=== PATIENT | male | born 1955 | race Caucasian/White ===

== ENCOUNTER 2019-01-01 20:08 | Inpatient (IN) | payer OTHER ==
[2019-01-01 20:29] LABS: ADD MAN DIFF? NO
[2019-01-01 20:31] LABS: BASOPHILS % 0.3 % (0.0-2.0); EOSINOPHILS # 0.1 10^3/ul (0.0-0.5); EOSINOPHILS % 0.5 % (0.0-7.0); HEMATOCRIT 42.6 % (42.0-52.0); LYMPHOCYTES # 2.3 10^3/ul (0.8-2.9); LYMPHOCYTES % 15.8 % (15.0-51.0); MEAN CORPUSCULAR HEMOGLOBIN 30.8 pg (29.0-33.0); MEAN CORPUSCULAR HGB CONC 32.9 g/dl (32.0-37.0); MEAN CORPUSCULAR VOLUME 93.6 fl (82.0-101.0); MEAN PLATELET VOLUME 9.4 fl (7.4-10.4); MONOCYTE # 1.3 10^3/ul (0.3-0.9); MONOCYTES % 8.6 % (0.0-11.0); NEUTROPHIL # 10.9 10^3/ul (1.6-7.5); NEUTROPHILS % 74.3 % (39.0-77.0); PLATELET COUNT 280 10^3/UL (140-415); RED BLOOD COUNT 4.55 10^6/ul (4.70-6.10); RED CELL DISTRIBUTION WIDTH 13.5 % (11.5-14.5)
[2019-01-01 20:31] LABS: WHITE BLOOD COUNT 14.7 10^3/ul (4.8-10.8)
[2019-01-01 20:50] LABS: INR 1.04; PROTIME 13.7 Sec (11.9-14.9); PT RATIO 1.1
[2019-01-01 20:55] LABS: ALANINE AMINOTRANSFERASE 42 IU/L (13-69); ALBUMIN 4.1 g/dl (3.3-4.9); ALBUMIN/GLOBULIN RATIO 1.36; ALKALINE PHOSPHATASE 52 IU/L (42-121); ANION GAP 6 (5-13); ASPARTATE AMINO TRANSFERASE 81 IU/L (15-46); BILIRUBIN,INDIRECT 0.4 mg/dl (0-1.1); BILIRUBIN,TOTAL 0.4 mg/dl (0.2-1.3); BLOOD UREA NITROGEN 23 mg/dl (7-20); CALCIUM 9.4 mg/dl (8.4-10.2); CARBON DIOXIDE 29 mmol/L (21-31); CHLORIDE 104 mmol/L (97-110); CREATININE 1.45 mg/dl (0.61-1.24); Estimated GFR 49 mL/min (>60); GLUCOSE 100 mg/dl (70-220); POTASSIUM 4.2 mmol/L (3.5-5.1); SODIUM 139 mmol/L (135-144); TOTAL PROTEIN 7.1 g/dl (6.1-8.1)
[2019-01-01 21:05] LABS: B-TYPE NATRIURETIC PEPTIDE 892 PG/ML (0-125)
[2019-01-01] MEDS ORDERED: ASPIRIN 325 MG TAB PO (21:07)
[2019-01-01] MEDS: ATORVASTATIN 80 MG TAB PO (21:24)
[2019-01-01] MEDS: HEPARIN 1000 UNITS/ML 10 ML INJ IV (21:26)
[2019-01-01] MEDS: HEPARIN 25000 UNITS/250 ML 250 ML IV (21:28)
[2019-01-01] MEDS: ASPIRIN 81 MG TAB PO (21:29)
[2019-01-01] MEDS ORDERED: LORAZEPAM 0.5 MG TAB PO (23:00)
[2019-01-01] MEDS ORDERED: ZOLPIDEM 5 MG TAB PO (23:00)
[2019-01-01] MEDS ORDERED: ACETAMINOPHEN 325 MG TAB PO (23:00)
[2019-01-01] MEDS ORDERED: morphine 2 MG INJ IV (23:00)
[2019-01-01] MEDS ORDERED: ONDANSETRON 4 MG TAB PO (23:00)
[2019-01-01] MEDS ORDERED: DOCUSATE SODIUM 100 MG CAP PO (23:00)
[2019-01-01] MEDS ORDERED: NACL 0.9% 3 ML SYG IV (23:00)
[2019-01-02 00:43] LABS: CREATINE KINASE 681 IU/L (23-200)
[2019-01-02] MEDS: FAMOTIDINE 20 MG TAB PO (00:57)
[2019-01-02] MEDS: METOPROLOL 25 MG TAB PO ×3 (00:57→21:00)
[2019-01-02] MEDS: HEPARIN 25000 UNITS/250 ML 250 ML IV (00:58)
[2019-01-02] MEDS ORDERED: HEPARIN 1000 UNITS/ML 10 ML INJ IV (01:00)
[2019-01-02 01:10] LABS: D-DIMER 418.56 ng/ml (<460)
[2019-01-02] MEDS: DEXTROSE 5%-0.45% NACL 1,000 ML IV (01:31)
[2019-01-02 02:20] LABS: ERYTHROCYTE SEDIMENTATION RATE 28 mm/Hr (0-20)
[2019-01-02 03:50] LABS: ADD MAN DIFF? NO
[2019-01-02 04:06] LABS: WHITE BLOOD COUNT 13.1 10^3/ul (4.8-10.8)
[2019-01-02 04:06] LABS: BASOPHILS % 0.2 % (0.0-2.0); EOSINOPHILS # 0.1 10^3/ul (0.0-0.5); EOSINOPHILS % 0.9 % (0.0-7.0); HEMATOCRIT 41.6 % (42.0-52.0); HEMOGLOBIN 13.8 g/dl (14.0-18.0); LYMPHOCYTES # 2.7 10^3/ul (0.8-2.9); LYMPHOCYTES % 20.5 % (15.0-51.0); MEAN CORPUSCULAR HEMOGLOBIN 30.7 pg (29.0-33.0); MEAN CORPUSCULAR HGB CONC 33.2 g/dl (32.0-37.0); MEAN CORPUSCULAR VOLUME 92.7 fl (82.0-101.0); MEAN PLATELET VOLUME 9.8 fl (7.4-10.4); MONOCYTE # 1.4 10^3/ul (0.3-0.9); MONOCYTES % 10.4 % (0.0-11.0); NEUTROPHIL # 8.8 10^3/ul (1.6-7.5); NEUTROPHILS % 67.5 % (39.0-77.0); PLATELET COUNT 262 10^3/UL (140-415); RED BLOOD COUNT 4.49 10^6/ul (4.70-6.10); RED CELL DISTRIBUTION WIDTH 13.6 % (11.5-14.5)
[2019-01-02 04:08] LABS: HEMOGLOBIN A1C 5.8 % (0-5.9)
[2019-01-02 04:12] LABS: PARTIAL THROMBOPLASTIN TIME 30.1 Sec (23.0-35.0)
[2019-01-02 04:15] LABS: CREATINE KINASE 650 IU/L (23-200)
[2019-01-02 04:17] LABS: ANION GAP 7 (5-13); BLOOD UREA NITROGEN 19 mg/dl (7-20); CALCIUM 8.8 mg/dl (8.4-10.2); CARBON DIOXIDE 26 mmol/L (21-31); CHLORIDE 108 mmol/L (97-110); CREATININE 1.18 mg/dl (0.61-1.24); Estimated GFR > 60 mL/min (>60); GLUCOSE 130 mg/dl (70-220); MAGNESIUM 2.2 mg/dl (1.7-2.5); SODIUM 141 mmol/L (135-144)
[2019-01-02 04:28] LABS: CK INDEX 4.1
[2019-01-02] MEDS: HEPARIN 1000 UNITS/ML 10 ML INJ IV (04:37)
[2019-01-02 05:39] LABS: THYROID STIMULATING HORMONE 0.541 MIU/L (0.465-4.680)
[2019-01-02] MEDS ORDERED: LIDOCAINE 1% (MDV) 20 ML INJ (08:51)
[2019-01-02] MEDS ORDERED: HEPARIN 1000 UNITS/ML 10 ML INJ (08:51)
[2019-01-02] MEDS ORDERED: VERAPAMIL 5 MG INJ (08:52)
[2019-01-02] MEDS ORDERED: FENTAnyl 50 MCG/ML VIAL ×2 (08:52→11:01)
[2019-01-02] MEDS ORDERED: NITROGLYCERIN (IC) 100 MCG/ML INJ (08:52)
[2019-01-02] MEDS ORDERED: MIDAZOLAM 1 MG/ML 2 ML INJ ×2 (08:52→11:01)
[2019-01-02] MEDS ORDERED: ASPIRIN (EC) 325 MG TAB PO (09:00)
[2019-01-02] MEDS ORDERED: IOHEXOL 350MG/ML 50 ML BTL (10:00)
[2019-01-02] MEDS ORDERED: IODIXANOL LOCM 100 ML BTL ×3 (10:00→10:53)
[2019-01-02] MEDS ORDERED: TICAGRELOR 90 MG TABLET (11:17)
[2019-01-02] MEDS: SOD CHLORIDE 0.9% 1,000 ML IV (12:19)
[2019-01-02] MEDS: NICOTINE (21 MG/24 HR) PATCH TRANSDERM (12:47)
[2019-01-02 13:26] LABS: PARTIAL THROMBOPLASTIN TIME 156.1 Sec (23.0-35.0)
[2019-01-02] MEDS: ARIPIPRAZOLE 5 MG TAB PO (21:24)
[2019-01-02] MEDS: ATORVASTATIN 80 MG TAB PO (21:24)
[2019-01-02] MEDS: TICAGRELOR 90 MG TABLET PO (21:27)
[2019-01-03 05:46] LABS: ADD MAN DIFF? NO
[2019-01-03 06:08] LABS: BASOPHILS % 0.2 % (0.0-2.0); EOSINOPHILS # 0.1 10^3/ul (0.0-0.5); EOSINOPHILS % 0.8 % (0.0-7.0); HEMATOCRIT 40.7 % (42.0-52.0); HEMOGLOBIN 13.8 g/dl (14.0-18.0); LYMPHOCYTES % 15.5 % (15.0-51.0); MEAN CORPUSCULAR HGB CONC 33.9 g/dl (32.0-37.0); MEAN CORPUSCULAR VOLUME 91.5 fl (82.0-101.0); MEAN PLATELET VOLUME 10.1 fl (7.4-10.4); MONOCYTE # 0.9 10^3/ul (0.3-0.9); MONOCYTES % 6.9 % (0.0-11.0); NEUTROPHIL # 9.9 10^3/ul (1.6-7.5); PLATELET COUNT 261 10^3/UL (140-415); RED BLOOD COUNT 4.45 10^6/ul (4.70-6.10); RED CELL DISTRIBUTION WIDTH 13.4 % (11.5-14.5)
[2019-01-03 07:05] LABS: ANION GAP 7 (5-13); BLOOD UREA NITROGEN 13 mg/dl (7-20); CARBON DIOXIDE 26 mmol/L (21-31); CHLORIDE 106 mmol/L (97-110); CHOL/HDL RATIO 3.7 RATIO; CHOLESTEROL 129 mg/dl (100-200); CREATININE 0.97 mg/dl (0.61-1.24); Estimated GFR > 60 mL/min (>60); GLUCOSE 111 mg/dl (70-220); HDL CHOLESTEROL 34 mg/dl (30-78); LDL CHOLESTEROL,CALCULATED 75 mg/dl; POTASSIUM 4.3 mmol/L (3.5-5.1); SODIUM 139 mmol/L (135-144); TRIGLYCERIDES 100 mg/dl (0-149)
[2019-01-03] MEDS: NICOTINE (21 MG/24 HR) PATCH TRANSDERM (08:05)
[2019-01-03] MEDS: TICAGRELOR 90 MG TABLET PO (08:06)
[2019-01-03] MEDS: ASPIRIN (EC) 81 MG TAB PO (08:09)
[2019-01-03] MEDS: METOPROLOL 25 MG TAB PO (08:09)
== END 2019-01-03 16:22 | disposition home or self-care (01) | DRG 247 ==
LOC: 6WM 01-03 02:15 → E/R 20:08 → 6WM 21:41 → ICU 23:42
PROC: 027034Z Dilation of Coronary Artery, One Artery with Drug-eluting Intraluminal Device, Percutaneous Approach (ICD-10-PCS; principal; 2019-01-02 09:00)
PROC: 4A023N7 Measurement of Cardiac Sampling and Pressure, Left Heart, Percutaneous Approach (ICD-10-PCS; 2019-01-02 09:00)
PROC: B211YZZ Fluoroscopy of Multiple Coronary Arteries using Other Contrast (ICD-10-PCS; 2019-01-02 09:00)
DX: I21.4 Non-ST elevation (NSTEMI) myocardial infarction (principal); I25.10 Atherosclerotic heart disease of native coronary artery without angina pectoris; I10 Essential (primary) hypertension; F17.200 Nicotine dependence, unspecified, uncomplicated; E66.9 Obesity, unspecified; Z68.34 Body mass index [BMI] 34.0-34.9, adult; E78.5 Hyperlipidemia, unspecified; F99 Mental disorder, not otherwise specified; F20.9 Schizophrenia, unspecified
CPT/HCPCS: 36415; 71045; 80048; 80053; 80061; 82550; 82553; 83036; 83735; 83880; 84443; 84484; 85025; 85378; 85610; 85651; 85730; 87081; 92928; 93005; 93306; 93458; 96374; 99285-25